=== PATIENT | female | born 1950 | race Caucasian/White ===

== ENCOUNTER 2023-11-06 08:51 | Day surgery (SDC) | payer MEDICARE, SELFPAY ==
[2023-11-06 09:00] VITALS: BP 136/83; PULSE 70; RESP 18; TEMP 36.6; O2SAT 18
[2023-11-06 09:35] VITALS: BMI 29.2
--- NOTE | 2023-11-06 09:35 | W.ANESPRE ---
General Info Date of Service Date Performed: 11/06/23 Height: 5 ft 6.93 in Weight: 84.5 kg Body Mass Index (BMI): 29.2 Surgical Procedure: Operation Date: 11/06/23 10:40 Proposed Procedure Side Surgeon p Cataract Extraction with IOL Implant Left Johnie Santamaria MD Meds Allergies and Home Medications Allergies Allergy/AdvReac Type Severity Reaction Status Date / Time insect venom Allergy Unverified 11/04/23 11:02 Home Medication Medication Instructions Recorded albuterol sulfate 90 mcg/actuation 2 puff inhalation Q4H PRN 11/03/23 aerosol inhaler ascorbic acid (vitamin C) 500 mg 500 mg PO DAILY 11/03/23 chewable tablet (Acerola C) aspirin 81 mg capsule 81 mg PO DAILY 11/03/23 calcium carbonate 600 mg calcium 600 mg PO DAILY 11/03/23 (1,500 mg) tablet (Calcium) coQ10 (ubiquinol) 100 mg capsule 100 mg PO DAILY 11/03/23 diclofenac sodium 1 % topical gel 2 g topical TID PRN 11/03/23 estradiol 10 mcg vaginal tablet 10 mcg vaginal DIRECTED 11/03/23 (Yuvafem) fluticasone propionate 230 2 puff inhalation BID 11/03/23 mcg-salmeterol 21 mcg/actuation HFA inhaler levothyroxine 75 mcg tablet 75 mcg PO DAILY 11/03/23 losartan 50 mg tablet 50 mg PO DAILY 11/03/23 nystatin 100,000 unit/gram topical 1 applic topical TID 11/03/23 powder (Nystop) simvastatin 20 mg tablet 20 mg PO DAILY 11/03/23 Current Visit Medications: Current Medications Generic Name Dose Route Start Last Admin Trade Name Freq PRN Reason Stop Dose Admin Acetaminophen 1,000 mg 11/06/23 06:00 Acetaminophen 500 Mg Tab PO 12/06/23 05:59 Q4H PRN PRN Balanced Salt Solution 500 ml 11/06/23 06:00 Balanced Salt Soln.-Plus 500 Ml Bag OP 12/06/23 05:59 DIRECTED LYN Miscellaneous Medication 0 ml 11/06/23 06:00 Prednisolone 1%, Moxifloxacin 0.5%, Bromfenac 0.09% 5ml Btl OS 12/06/23 05:59 DIRECTED LYN Miscellaneous Medication 0 ml 11/06/23 06:00 11/06/23 09:29 Tropicam./Phenyleph. (1/2.5%) 10 Ml Btl OS 12/06/23 05:59 1 drp DIRECTED LYN Administration Tetracaine HCl 0 ml 11/06/23 06:00 Tetracaine 0.5% 4 Ml Btl OS 12/06/23 05:59 DIRECTED LYN PFSH Active Problems Active Problems: Problem Status Onset Code Cortical age-related cataract, left eye H25.012 Nuclear age-related cataract, left eye H25.12 Medical History Medical History Varicose veins of lower extremity Urinary incontinence Primary malignant neoplasm of skin Plantar fascial fibromatosis Palpitations Pt. denies Osteophyte Non-neoplastic nevus Impaired fasting glucose Idiopathic osteoarthritis Hypothyroidism HTN (hypertension) HLD (hyperlipidemia) DJD (degenerative joint disease) Basal cell carcinoma of skin Atrophic vaginitis Atherosclerosis of artery Asthma Allergy to insects Actinic keratosis Abnormal weight gain Surgical History Surgical History History of right knee joint replacement History of tubal ligation H/O arthroscopy of knee S/P lumpectomy of breast H/O dilation and curettage Hx of hysterectomy History of stress incontinence procedure using tension free vaginal tape Hx of colonoscopy Tobacco Smoking/Tobacco Use Status: Never Alcohol Alcohol Intake: current Alcohol intake frequency: a few times a week Substance Use Substance use: Never Substance use type: does not use Vital Signs and Lab Results Vital Signs Most Recent Vital Signs in EMR: Most Recent Vital Signs Temp Pulse Resp BP Pulse Ox 36.6 C 70 18 136/83 18 L 11/06/23 09:00 11/06/23 09:00 11/06/23 09:00 11/06/23 09:00 11/06/23 09:00 Lab Results Blood Type / Crossmatch: No Data to Display Complete Blood Count: No Data to Display Complete Metabolic Panel: No Data to Display Liver Function Panel: No Data to Display Coagulation Panel: No Data to Display Cardiac Panel: No Data to Display Arterial Blood Gas: No Data to Display Venous Blood Gas: No Data to Display Pancreas Panel: No Data to Display Thyroid Panel: No Data to Display Infectious Disease: No Data to Display Blood Cultures: No Data to Display Toxicology Panel: No Data to Display Anesthesia Assessment and Plan Anesthesia History Personal History: No History of Anesthesia Complications Family History: No Family History of Anesthesia Complications Exercise Tolerance Exercise Tolerance: Metabolic Equivalents>4 Pertinent Negatives Pertinent Negatives: No Symptoms of GERD Cardiac & Pulmonary Exam Cardiac Exam: Normal S1/S2 Heart Sounds Pulmonary Exam: Clear Bilateral Breath Sounds Implantable Cardiac Device Does patient have a Pacemaker or an ICD?: No Airway Exam Known Difficult Airway: No Mallampati Class: 1 Mouth Opening: Normal (> 3cm) Thyromental Distance: Greater than 3 cm Neck Range of Motion: Full ROM Neck Circumference: Normal Teeth Condition: Normal Dentition ASA Classification ASA Score: ASA 2 Emergency Case?: No NPO Status NPO Status: NPO Clears >2 hours, Solids >8 hours Anesthesia Plan Resuscitation Status: Full Code Anesthesia Technique: MAC Anesthesia Airway Planned: Natural Airway Monitors Used: Standard Monitors
[2023-11-06] MEDS: Povidone-Iodine Ophth 30 ML BTL (10:07)
[2023-11-06] MEDS: Duovisc Viscoelastic System EACH 1 EACH (10:18)
[2023-11-06] MEDS: Balanced Salt Soln.-PLUS 500 ML BAG OP (10:18)
[2023-11-06] MEDS: Lidocaine 1% Pres-Free 5 ML VIAL (10:20)
[2023-11-06] MEDS: Tetracaine 0.5% 4 ML BTL OS (10:20)
[2023-11-06 10:33] VITALS: BP 144/96; PULSE 74; RESP 16; TEMP 36.3; O2SAT 99
--- NOTE | 2023-11-06 10:40 | W.PM.DSUDISC ---
Date of service: 11/06/23 Time of Service: 10:40 Discharge Plan Disposition Patient Disposition: Home Discharge Details Attending Provider: Johnie Santamaria Primary Care Provider: Dulce Maria Gross Home Meds and New Rx's Prescriptions: No Action fluticasone propion-salmeterol 230-21 mcg/actuation HFA aerosol inhaler 2 puff INHALATION BID Patient Comments: INHALE 2 PUFFS BY MOUTH TWICE DAILY albuterol sulfate 90 mcg/actuation HFA aerosol inhaler 2 puff INHALATION Q4H PRN aspirin 81 mg capsule 81 mg PO DAILY calcium carbonate [Calcium 600] 600 mg calcium (1,500 mg) tablet 600 mg PO DAILY coQ10 (ubiquinol) 100 mg capsule 100 mg PO DAILY losartan 50 mg tablet 50 mg PO DAILY levothyroxine 75 mcg tablet 75 mcg PO DAILY Patient Comments: TAKE 1 TABLET BY MOUTH ONCE DAILY simvastatin 20 mg tablet 20 mg PO DAILY nystatin [Nystop] 100,000 unit/gram powder 1 applic TOPICAL TID Patient Comments: APPLY POWDER TOPICALLY THREE TIMES DAILY diclofenac sodium 1 % gel 2 g TOPICAL TID PRN Patient Comments: APPLY 2 GRAMS TOPICALLY TO THE AFFECTED AREA(S) THREE TIMES PERDAY NEEDED ascorbic acid (vitamin C) [Acerola C] 500 mg tablet,chewable 500 mg PO DAILY estradiol [Yuvafem] 10 mcg tablet 10 mcg vaginal DIRECTED Discharge Instructions Stand Alone Forms: [facility] Post-Op CataractDaron ([facility]U) Discharge Orders Discharge Orders: Discharge Order (Routine); Ordered 11/06/23 Ordered By: Johnie Santamaria DS: Diagnosis Discharge Diagnosis (1) Cortical age-related cataract, left eye: Status: Resolved (2) Nuclear age-related cataract, left eye: Status: Resolved
--- NOTE | 2023-11-06 10:41 | ROE_ITS ---
Date of service: 11/06/23 Time of Service: 10:41 Operative Note Operative Note DATE OF PROCEDURE: 11/06/23 PRE-OP DIAGNOSIS: Nuclear/cortical cataract, left eye POST-OP DIAGNOSIS: same PROCEDURE: Cataract extraction using phacoemulsification with intraocular lens implant, left eye SURGEON: Johnie Santamaria ANESTHESIA TYPE: Local By Surgeon and MAC Refer to Anesthesia Record PATHOLOGY: none sent COMPLICATIONS: None Patient was transported to: same day Patient's condition: stable Implants: Jalen Clareon [id number] Indications: Progressive decreased vision due to cataract, left eye Procedure Description: CATARACT SURGERY OPERATIVE REPORT PREOPERATIVE DIAGNOSIS: Nuclear/cortical cataract, left eye POSTOPERATIVE DIAGNOSIS: Same OPERATION: Cataract extraction using phacoemulsification with posterior chamber intraocular lens implant, left eye. IOL: IOL Occupational Health Physician/Model: Jalen Clareon [id number] IOL Power: + 24.0 diopters IOL Serial Number: [] Optic Diameter: 6.0mm Haptic/Overall Diameter: 13.0mm PHACO INFO: Jalen [employer] Partnersurion Vision System with OZil and Active [employer]uidics Cumulative Dispersed Energy (CDE): 7.64 seconds SURGEON: Johnie Santamaria MD, VERONICA ANESTHESIA: Monitored Anesthesia Care (MAC), with local sub-tenon's anesthetic infiltration COMPLICATIONS: None SPECIMENS: None INDICATIONS FOR PROCEDURE: The patient is a 72-year-old lady with history of diminished visual acuity in her left eye secondary to the development of nuclear/cortical cataract. She is significantly symptomatic that she desires cataract surgery and attempt to improve and maximize her vision. The option of cataract surgery was offered to the patient and she wished to proceed. See office notes for detailed information. PROCEDURE: The correct surgical eye was identified and marked as the left eye and the pupil was dilated in the preoperative area using mydriatics and cycloplegics. The dilated pupil size was 7.0 mm. The patient elected to proceed without oral sedation. The patient was brought to the operating room where cardiopulmonary monitoring was instituted and surgical time-out was performed, confirming the correct operative eye and IOL power. Topical anesthesia was administered and ophthalmic povidone-iodine 5% was instilled into the conjunctival fornices. The rah-ocular area was prepped with Betadine 10% solution and draped in the usual sterile fashion for intraocular surgery, including an aperture drape. A Tegaderm transparent film dressing was cut in half and used to cover the lashes and lid margins. Care was taken to sequester the lashes and lid margins under the Tegaderm dressing. A lid speculum was placed between the lids of the operative eye and the Jalen LuxOR Revalia operating microscope was maneuvered into position. Jo scissors were then used to make a conjunctival buttonhole approximately 6mm posterior to the limbus in the inferonasal quadrant. Blunt dissection was carried out to expose bare sclera, and a blunt-tipped sub-tenon?s anesthesia cannula was introduced and passed posteriorly along the globe where non- preserved plain lidocaine was injected into posterior sub-Tenon?s space. A sideport knife was used to make a paracentesis port. Intraocular phenylephrine/lidocaine was injected into the anterior chamber. The anterior chamber was then filled with viscoelastic. A keratome knife was used construct a two-plane clear corneal tunnel extending 2.0mm into clear cornea. A flap was raised on the anterior capsule and capsulorhexis forceps were used to complete a continuous curvilinear capsulorhexis of 5.0 mm. Balanced salt solution was then used to perform cortical cleaving hydrodissection and nuclear hydrodelineation until the lens could be freely rotated within the capsular bag. The lens nucleus was then disassembled and removed within the capsular bag and iris plane using phacoemulsification. Residual cortical material was removed using the irrigation/aspiration handpiece. The posterior capsule was carefully polished to remove as much residual lens epithelial cells as safely possible. The capsular bag was then inflated and the anterior chamber deepened with viscoelastic. The lens implant described above was inserted into the capsular bag using the Jalen Autonome Injector. A Kuglen hook was used to dial the IOL into position. Residual viscoelastic was then removed first from posterior to the IOL, then from the anterior chamber using the I/A handpiece. The lens implant was noted to center nicely within the capsular bag. The incisions were stromally hydrated, and the anterior chamber was reformed using BSS. Then 0.5cc of moxifloxacin 1.0mg/ml were injected into the capsular bag and anterior chamber. The incisions were checked with a Weck spear and found to be secure. Several drops of ophthalmic povidone-iodine 5% were then applied to the eye followed by two drops of combination steroid/NSAID/antibiotic solution. The drapes were removed and a clear plastic protective eye shield was placed over the eye. The patient was then returned to [facility] Day Surgery in stable condition.
--- NOTE | 2023-11-06 11:07 | W.ANESPOSTOP ---
Postoperative Evaluation Date, Time and Location Date Performed: 11/06/23 Time Performed: 10:58 Patient Location: Day Surgery Unit Vital Signs Most Recent Imported Vital Signs: Most Recent Vital Signs Temp Pulse Resp BP Pulse Ox 36.3 C L 74 16 144/96 H 99 11/06/23 10:33 11/06/23 10:33 11/06/23 10:33 11/06/23 10:33 11/06/23 10:33 Pain Score Most Recent Pain Score: Most Recent Pain Score Pain Level 0 11/06/23 10:33 Assessment Mental Status: Awake (Alert & Oriented to Patient Baseline) Airway and Respiratory Function: Patent airway with normal (patient baseline) respiratory exam Cardiovascular Function: Hemodynamically Stable Hydration Status: Adequately Hydrated Nausea & Vomiting: No Nausea or Vomiting Pain: Pt. Denies Any Pain Peripheral Nerve Block: Patient did not receive a nerve block
== END 2023-11-06 10:59 | disposition home or self-care (01) ==
LOC: SUR 08:52
PROVIDERS: PCP Internal Medicine; Visit Provider Ophthalmology
PROC: (CPT 66984; principal; 2023-11-06 10:30)
DX: H25.012 Cortical age-related cataract, left eye (principal); H25.12 Age-related nuclear cataract, left eye; I10 Essential (primary) hypertension
CPT/HCPCS: 66984; 00123; V2632; J2003

== ENCOUNTER 2023-11-20 06:33 | Day surgery (SDC) | payer MEDICARE, SELFPAY ==
[2023-11-20 06:48] VITALS: BP 148/87; PULSE 74; RESP 16; TEMP 36.4; O2SAT 96
--- NOTE | 2023-11-20 07:06 | ANES.PREOP_ITS ---
General Info Date of Service Date Performed: 11/20/23 Height: 5 ft 6.93 in Weight: 84.5 kg Body Mass Index (BMI): 29.2 Surgical Procedure: Operation Date: 11/20/23 07:40 Proposed Procedure Side Surgeon p Cataract Extraction with IOL Implant Right Johnie Santamaria MD Meds Allergies and Home Medications Allergies Allergy/AdvReac Type Severity Reaction Status Date / Time insect venom Allergy Other (See Verified 11/20/23 06:45 Comment) Home Medication Medication Instructions Recorded albuterol sulfate 90 mcg/actuation 2 puff inhalation Q4H PRN 11/03/23 aerosol inhaler ascorbic acid (vitamin C) 500 mg 500 mg PO DAILY 11/03/23 chewable tablet (Acerola C) aspirin 81 mg capsule 81 mg PO DAILY 11/03/23 calcium carbonate 600 mg calcium 600 mg PO DAILY 11/03/23 (1,500 mg) tablet (Calcium) coQ10 (ubiquinol) 100 mg capsule 100 mg PO DAILY 11/03/23 diclofenac sodium 1 % topical gel 2 g topical TID PRN 11/03/23 estradiol 10 mcg vaginal tablet 10 mcg vaginal DIRECTED 11/03/23 (Yuvafem) fluticasone propionate 230 2 puff inhalation BID 11/03/23 mcg-salmeterol 21 mcg/actuation HFA inhaler levothyroxine 75 mcg tablet 75 mcg PO DAILY 11/03/23 losartan 50 mg tablet 50 mg PO DAILY 11/03/23 nystatin 100,000 unit/gram topical 1 applic topical TID 11/03/23 powder (Nystop) simvastatin 20 mg tablet 20 mg PO DAILY 11/03/23 Current Visit Medications: Current Medications Generic Name Dose Route Start Last Admin Trade Name Freq PRN Reason Stop Dose Admin Acetaminophen 1,000 mg 11/20/23 06:00 Acetaminophen 500 Mg Tab PO 12/20/23 05:59 Q4H PRN PRN Balanced Salt Solution 500 ml 11/20/23 06:00 Balanced Salt Soln.-Plus 500 Ml Bag OP 12/20/23 05:59 DIRECTED LYN Miscellaneous Medication 0 ml 11/20/23 06:00 Prednisolone 1%, Moxifloxacin 0.5%, Bromfenac 0.09% 5ml Btl OD 12/20/23 05:59 DIRECTED LYN Miscellaneous Medication 0 ml 11/20/23 06:00 11/20/23 06:57 Tropicam./Phenyleph. (1/2.5%) 10 Ml Btl OD 12/20/23 05:59 1 drp DIRECTED LYN Administration Tetracaine HCl 0 ml 11/20/23 06:00 Tetracaine 0.5% 4 Ml Btl OD 12/20/23 05:59 DIRECTED LYN PFSH Active Problems Active Problems: Problem Status Onset Code Cortical age-related cataract, right eye H25.011 Nuclear age-related cataract, right eye H25.11 Cortical age-related cataract, left eye H25.012 Nuclear age-related cataract, left eye H25.12 Medical History Medical History Varicose veins of lower extremity Urinary incontinence Primary malignant neoplasm of skin Plantar fascial fibromatosis Palpitations Pt. denies Osteophyte Non-neoplastic nevus Impaired fasting glucose Idiopathic osteoarthritis Hypothyroidism HTN (hypertension) HLD (hyperlipidemia) DJD (degenerative joint disease) Basal cell carcinoma of skin Atrophic vaginitis Atherosclerosis of artery Asthma Allergy to insects Actinic keratosis Abnormal weight gain Surgical History Surgical History History of right knee joint replacement History of tubal ligation H/O arthroscopy of knee S/P lumpectomy of breast H/O dilation and curettage Hx of hysterectomy History of stress incontinence procedure using tension free vaginal tape Hx of colonoscopy Tobacco Smoking/Tobacco Use Status: Never Alcohol Alcohol Intake: current Alcohol intake frequency: a few times a week Substance Use Substance use: Never Substance use type: does not use Vital Signs and Lab Results Vital Signs Most Recent Vital Signs in EMR: Most Recent Vital Signs Temp Pulse Resp BP Pulse Ox 36.4 C L 74 16 148/87 H 96 11/20/23 06:48 11/20/23 06:48 11/20/23 06:48 11/20/23 06:48 11/20/23 06:48 Lab Results Blood Type / Crossmatch: No Data to Display Complete Blood Count: No Data to Display Complete Metabolic Panel: No Data to Display Liver Function Panel: No Data to Display Coagulation Panel: 2 No Data to Display Cardiac Panel: No Data to Display Arterial Blood Gas: No Data to Display Venous Blood Gas: No Data to Display Pancreas Panel: No Data to Display Thyroid Panel: No Data to Display Infectious Disease: No Data to Display Blood Cultures: No Data to Display Toxicology Panel: No Data to Display Anesthesia Assessment and Plan Anesthesia History Personal History: No History of Anesthesia Complications Family History: No Family History of Anesthesia Complications Exercise Tolerance Exercise Tolerance: Metabolic Equivalents>4 Pertinent Negatives Pertinent Negatives: No Symptoms of GERD Cardiac & Pulmonary Exam Cardiac Exam: Normal S1/S2 Heart Sounds Pulmonary Exam: Clear Bilateral Breath Sounds Implantable Cardiac Device Does patient have a Pacemaker or an ICD?: No Airway Exam Known Difficult Airway: No Mallampati Class: 1 Mouth Opening: Normal (> 3cm) Thyromental Distance: Greater than 3 cm Neck Range of Motion: Full ROM Neck Circumference: Normal Teeth Condition: Normal Dentition ASA Classification ASA Score: ASA 2 Emergency Case?: No NPO Status NPO Status: NPO Clears >2 hours, Solids >8 hours Anesthesia Plan Resuscitation Status: Full Code Anesthesia Technique: MAC Anesthesia Airway Planned: Natural Airway Monitors Used: Standard Monitors
[2023-11-20 07:13] VITALS: BMI 29.2
[2023-11-20] MEDS: Duovisc Viscoelastic System EACH 1 EACH (07:42)
[2023-11-20] MEDS: Povidone-Iodine Ophth 30 ML BTL (07:42)
[2023-11-20] MEDS: Lidocaine 1% Pres-Free 5 ML VIAL (07:47)
[2023-11-20] MEDS: Balanced Salt Soln.-PLUS 500 ML BAG OP (07:49)
[2023-11-20] MEDS: Tetracaine 0.5% 4 ML BTL OD (07:51)
--- NOTE | 2023-11-20 08:02 | W.PM.DSUDISC ---
Date of service: 11/20/23 Time of Service: 08:02 Discharge Plan Disposition Patient Disposition: Home Discharge Details Attending Provider: Johnie Santamaria Primary Care Provider: Dulce Maria Gross Home Meds and New Rx's Prescriptions: No Action fluticasone propion-salmeterol 230-21 mcg/actuation HFA aerosol inhaler 2 puff INHALATION BID Patient Comments: INHALE 2 PUFFS BY MOUTH TWICE DAILY albuterol sulfate 90 mcg/actuation HFA aerosol inhaler 2 puff INHALATION Q4H PRN aspirin 81 mg capsule 81 mg PO DAILY calcium carbonate [Calcium 600] 600 mg calcium (1,500 mg) tablet 600 mg PO DAILY coQ10 (ubiquinol) 100 mg capsule 100 mg PO DAILY losartan 50 mg tablet 50 mg PO DAILY levothyroxine 75 mcg tablet 75 mcg PO DAILY Patient Comments: TAKE 1 TABLET BY MOUTH ONCE DAILY simvastatin 20 mg tablet 20 mg PO DAILY nystatin [Nystop] 100,000 unit/gram powder 1 applic TOPICAL TID Patient Comments: APPLY POWDER TOPICALLY THREE TIMES DAILY diclofenac sodium 1 % gel 2 g TOPICAL TID PRN Patient Comments: APPLY 2 GRAMS TOPICALLY TO THE AFFECTED AREA(S) THREE TIMES PERDAY NEEDED ascorbic acid (vitamin C) [Acerola C] 500 mg tablet,chewable 500 mg PO DAILY estradiol [Yuvafem] 10 mcg tablet 10 mcg vaginal DIRECTED Discharge Instructions Stand Alone Forms: [facility] Post-Op CataractDaron ([facility]) Discharge Orders Discharge Orders: Discharge Order (Routine); Ordered 11/20/23 Ordered By: Johnie Santamaria DS: Diagnosis Discharge Diagnosis (1) Cortical age-related cataract, right eye: Status: Resolved (2) Nuclear age-related cataract, right eye: Status: Resolved
[2023-11-20 08:03] VITALS: BP 149/91; PULSE 71; RESP 16; TEMP 36.5; O2SAT 97
--- NOTE | 2023-11-20 08:03 | ROE_ITS ---
Date of service: 11/20/23 Time of Service: 08:03 Operative Note Operative Note DATE OF PROCEDURE: 11/20/23 PRE-OP DIAGNOSIS: Nuclear/cortical cataract, right eye POST-OP DIAGNOSIS: same PROCEDURE: Cataract extraction using phacoemulsification with intraocular lens implant, right eye SURGEON: Johnie Santamaria ANESTHESIA TYPE: Local By Surgeon and MAC Refer to Anesthesia Record ESTIMATED BLOOD LOSS: 0 PATHOLOGY: none sent COMPLICATIONS: None Patient was transported to: same day Patient's condition: stable Implants: Jalen Clareon [id number] Indications: Progressive decreased vision due to cataract, right eye Procedure Description: CATARACT SURGERY OPERATIVE REPORT PREOPERATIVE DIAGNOSIS: Nuclear/cortical cataract, right eye POSTOPERATIVE DIAGNOSIS: Same OPERATION: Cataract extraction using phacoemulsification with posterior chamber intraocular lens implant, right eye. IOL: IOL It Field Technician/Model: Jalen Clareon [id number] IOL Power: + 25.0 diopters IOL Serial Number: [id number] Optic Diameter: 6.0mm Haptic/Overall Diameter: 13.0mm PHACO INFO: Jalen [employer] Vision System with OZil and Active [employer]uid[employer] Cumulative Dispersed Energy (CDE): 10.50 seconds SURGEON: Johnie Santamaria MD, VERONICA ANESTHESIA: Monitored Anesthesia Care (MAC), with local sub-tenon's anesthetic infiltration COMPLICATIONS: None SPECIMENS: None INDICATIONS FOR PROCEDURE: The patient is a 73-year-old lady with history of diminished visual acuity in both eyes secondary to the development of bilateral nuclear/cortical cataract. She has already undergone cataract surgery in the left eye and is doing well postoperatively. She now presents for cataract surgery in the right eye. See office notes for detailed information. PROCEDURE: The correct surgical eye was identified and marked as the right eye and the pupil was dilated in the preoperative area using mydriatics and cycloplegics. The dilated pupil size was 7.0 mm. The patient elected to proceed without oral sedation. The patient was brought to the operating room where cardiopulmonary monitoring was instituted and surgical time-out was performed, confirming the correct operative eye and IOL power. Topical anesthesia was administered and ophthalmic povidone-iodine 5% was instilled into the conjunctival fornices. The rah-ocular area was prepped with Betadine 10% solution and draped in the usual sterile fashion for intraocular surgery, including an aperture drape. A Tegaderm transparent film dressing was cut in half and used to cover the lashes and lid margins. Care was taken to sequester the lashes and lid margins under the Tegaderm dressing. A lid speculum was placed between the lids of the operative eye and the Nithin-Hugo operating microscope was maneuvered into position. Jo scissors were then used to make a conjunctival buttonhole approximately 6mm posterior to the limbus in the inferonasal quadrant. Blunt dissection was carried out to expose bare sclera, and a blunt-tipped sub-tenon?s anesthesia cannula was introduced and passed posteriorly along the globe where non- preserved plain lidocaine was injected into posterior sub-Tenon?s space. A sideport knife was used to make a paracentesis port. Intraocular phenylephrine/lidocaine was injected into the anterior chamber. The anterior chamber was then filled with viscoelastic. A keratome knife was used to construct a two--plane clear corneal tunnel extending 2.0mm into clear cornea. A flap was raised on the anterior capsule and capsulorhexis forceps were used to complete a continuous curvilinear capsulorhexis of 5.0 mm. Balanced salt solution was then used to perform cortical cleaving hydrodissection and nuclear hydrodelineation until the lens could be freely rotated within the capsular bag. The lens nucleus was then disassembled and removed within the capsular bag and iris plane using phacoemulsification. Residual cortical material was removed using the I/A handpiece. The posterior capsule was carefully polished to remove as much residual lens epithelial cells as safely possible. The capsular bag was then inflated and the anterior chamber deepened with cohesive viscoelastic. The lens implant described above was inserted into the capsular bag using the Jalen Autonome Injector. A Kuglen hook was used to dial the IOL into position. Residual viscoelastic was then removed first from posterior to the IOL, then from the anterior chamber using the I/A handpiece. The lens implant was noted to center nicely within the capsular bag. The incisions were stromally hydrated, and the anterior chamber was reformed using BSS. Then 0.5cc of moxifloxacin 1.0mg/ml were injected into the capsular bag and anterior chamber. The incisions were checked with a Weck spear and found to be secure. Several drops of ophthalmic povidone-iodine 5% were then applied to the eye followed by two drops of combination steroid/NSAID/antibiotic solution. The drapes were removed and a clear plastic protective eye shield was placed over the eye. The patient was then returned to [facility] Day Surgery in stable condition.
--- NOTE | 2023-11-20 08:11 | W.ANESPOSTOP ---
Postoperative Evaluation Date, Time and Location Date Performed: 11/20/23 Time Performed: 08:12 Patient Location: Day Surgery Unit Vital Signs Most Recent Imported Vital Signs: Most Recent Vital Signs Temp Pulse Resp BP Pulse Ox 36.4 C L 74 16 148/87 H 96 11/20/23 06:48 11/20/23 06:48 11/20/23 06:48 11/20/23 06:48 11/20/23 06:48 Pain Score Most Recent Pain Score: Most Recent Pain Score Pain Level 0 11/20/23 06:48 Assessment Mental Status: Awake (Alert & Oriented to Patient Baseline) Airway and Respiratory Function: Patent airway with normal (patient baseline) respiratory exam Cardiovascular Function: Hemodynamically Stable Hydration Status: Adequately Hydrated Nausea & Vomiting: No Nausea or Vomiting Pain: Pt. Denies Any Pain Peripheral Nerve Block: Patient did not receive a nerve block
--- NOTE | 2023-11-20 08:30 | W.ANESPOSTOP ---
Postoperative Evaluation Date, Time and Location Date Performed: 11/20/23 Vital Signs Most Recent Imported Vital Signs: Most Recent Vital Signs Temp Pulse Resp BP Pulse Ox 36.5 C 71 16 149/91 H 97 11/20/23 08:03 11/20/23 08:03 11/20/23 08:03 11/20/23 08:03 11/20/23 08:03 Most Recent Vital Signs Temp Pulse Resp BP Pulse Ox 36.4 C L 74 16 148/87 H 96 11/20/23 06:48 11/20/23 06:48 11/20/23 06:48 11/20/23 06:48 11/20/23 06:48 Pain Score Most Recent Pain Score: Most Recent Pain Score Pain Level 0 11/20/23 08:03
== END 2023-11-20 08:30 | disposition home or self-care (01) ==
LOC: SUR 06:33
PROVIDERS: PCP Internal Medicine; Visit Provider Ophthalmology
PROC: (CPT 66984; principal; 2023-11-20 07:30)
DX: H25.011 Cortical age-related cataract, right eye (principal); H25.11 Age-related nuclear cataract, right eye; I10 Essential (primary) hypertension; Z98.42 Cataract extraction status, left eye
CPT/HCPCS: 66984; 00123; V2632; J2003